=== PATIENT | male | born 1945 | race Caucasian/White ===

== ENCOUNTER 2020-04-07 12:53 | Emergency (ER) | payer BC ==
[~2020-04-07] VITALS: Ht 188 cm; Wt 78.0 kg
[2020-04-07] MEDS ORDERED: NAMENDA 5 MG TAB5 M1 PO (13:16)
[2020-04-07] MEDS ORDERED: SEROQUEL 25 MG25 MG PO (13:16)
[2020-04-07] MEDS ORDERED: ARICEPT10 MG PO (13:17)
[2020-04-07] MEDS ORDERED: PROSCAR 5MG TABL5 M1 PO (13:17)
[2020-04-07] MEDS ORDERED: KAPSPARGO SPRIN50 MG PO (13:17)
[2020-04-07 13:57] LABS: ABSOLUTE EOSINOPHILS 0.1 thou/uL (0.0-0.7); ABSOLUTE LYMPHOCYTES 0.5 thou/uL (0.8-5.3); ABSOLUTE MONOCYTES 0.5 thou/uL (0.0-1.2); ABSOLUTE NEUTROPHILS 2.8 thou/uL (1.6-8.1); BASOPHILS 0.9 %; EOSINOPHILS 1.9 %; MCH 33.1 pg (26.0-34.0); MCHC 34.3 g/dL (28.0-37.0); MCV 96.6 fL (80.0-100.0); MONOCYTES 12.2 %; NUCLEATED RBCS 0 /100WBC; PLATELET COUNT* 53 thou/uL (150-400); RBC 4.24 mil/uL (4.50-6.00); RDW-CV 13.4 % (10.5-14.5); WBC 3.9 thou/uL (4.0-11.0)
[2020-04-07 13:59] LABS: CALCIUM 8.6 mg/dL (8.5-10.1); CREATININE 0.9 mg/dL (0.6-1.3); POTASSIUM 4.3 mmol/L (3.5-5.1)
[2020-04-07 14:04] LABS: ALBUMIN 3.5 g/dL (3.4-5.0); TOTAL BILIRUBIN 1.4 mg/dL (<0.1-1.0); TOTAL PROTEIN 7.2 g/dL (6.4-8.2)
[2020-04-07 15:15] LABS: URINE BILIRUBIN NEGATIVE (Negative); URINE BLOOD NEGATIVE (Negative); URINE CLARITY CLEAR; URINE COLOR YELLOW; URINE GLUCOSE-RANDOM NEGATIVE (Negative); URINE KETONES NEGATIVE (Negative); URINE LEUKOCYTES-REFLEX NEGATIVE (Negative); URINE NITRITE-REFLEX NEGATIVE (Negative); URINE PROTEIN NEGATIVE (Negative)
[2020-04-07 16:14] LABS: APTT 24.8 Seconds (25.0-31.3); INR 1.2; PROTIME 12.6 Seconds (9.20-11.50)
[2020-04-07] MEDS ORDERED: NORCO 5-325 TA1 EAC2 PO (17:13)
[2020-04-07 17:29] VITALS: BP 129/75
--- NOTE | 2020-04-08 17:53 | EKG ---
[place] [address] ELECTROCARDIOGRAM REPORT Name: JULIANA BECKER Room: [facility]#: [id number] Admission: 04/07/20 Attend Phys: Discharge: 04/07/20 Date of : 41 Date of Service: 04/07/20 1609 Report #: [id number] THIS REPORT FOR: //name// 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[employer] : 1945 Requested By: Jessica San Order Number: [id number] MD: Anant Castillo Measurements Intervals [place] Rate: 64 P: 29 MA: 172 QRS: -33 QRSD: 100 T: 0 QT: 443 QTc: 457 Interpretive Statements Sinus rhythm Abnormal R-wave progression, late transition Left anterior fascicular block borderline T abnormalities, inferior leads Baseline wander in lead(s) II,III,aVF No previous ECG available for comparison Electronically Signed On 04-08-2020 17:53:42 CDT by Anant Castillo [email or web address] <ELECTRONICALLY SIGNED> By: Anant Castillo MD, FACC 04/08/20 1753 1609 1609 Anant Castillo MD, FACC /EPI
== END 2020-04-07 17:29 | disposition home or self-care (01) ==
LOC: M.ERS 12:53
PROVIDERS: Nurse Practitioner Family
DX: S22.43XA Multiple fractures of ribs, bilateral, initial encounter for closed fracture (principal); S30.0XXA Contusion of lower back and pelvis, initial encounter; R91.8 Other nonspecific abnormal finding of lung field; I10 Essential (primary) hypertension; W18.39XA Other fall on same level, initial encounter; Y93.89 Activity, other specified; Y92.091 Bathroom in other non-institutional residence as the place of occurrence of the external cause; Y99.8 Other external cause status

== ENCOUNTER 2021-02-28 08:45 | Emergency (ER) | payer BC ==
[~2021-02-28] VITALS: Ht 182.9 cm; Wt 95.3 kg
[~2021-02-28 08:45] MED LIST: ARICEPT10 MG PO; KAPSPARGO SPRIN50 MG PO; NAMENDA 5 MG TAB5 M1 PO; NORCO 5-325 TA1 EAC2 PO; PROSCAR 5MG TABL5 M1 PO; SEROQUEL 25 MG25 MG PO
[2021-02-28] MEDS ORDERED: SEROQUEL 50 MG50 M1 PO (08:57)
[2021-02-28] MEDS ORDERED: FLOMAX0.4 MG PO (08:57)
[2021-02-28] MEDS ORDERED: CARVEDILOL12.5 MG PO (08:57)
[2021-02-28 09:53] LABS: ABSOLUTE EOSINOPHILS 0.1 thou/uL (0.0-0.7); ABSOLUTE LYMPHOCYTES 0.4 thou/uL (0.8-5.3); ABSOLUTE MONOCYTES 0.4 thou/uL (0.0-1.2); ABSOLUTE NEUTROPHILS 2.9 thou/uL (1.6-8.1); BASOPHILS 0.7 %; EOSINOPHILS 1.3 %; HEMATOCRIT 35.4 % (42.0-52.0); HEMOGLOBIN 12.2 gm/dL (14.0-18.0); LYMPHOCYTES 10.6 %; MCH 31.5 pg (26.0-34.0); MCHC 34.3 g/dL (28.0-37.0); MCV 91.8 fL (80.0-100.0); MONOCYTES 10.4 %; MPV 8.9 fl. (7.2-11.1); NUCLEATED RBCS 0 /100WBC; RBC 3.86 mil/uL (4.50-6.00); RDW-CV 14.1 % (10.5-14.5); WBC 3.8 thou/uL (4.0-11.0)
[2021-02-28 09:59] LABS: PLATELET COUNT* 45 thou/uL (150-400)
[2021-02-28 10:01] LABS: CALCIUM 8.8 mg/dL (8.5-10.1); CREATININE 1.1 mg/dL (0.6-1.3); POTASSIUM 4.3 mmol/L (3.5-5.1)
[2021-02-28] MEDS ORDERED: BACTRIM DS TAB1 EAC1 PO (10:47)
[2021-02-28 11:01] VITALS: BP 108/71
== END 2021-02-28 11:02 | disposition home or self-care (01) ==
LOC: M.ERS 08:45
PROVIDERS: Emergency Medicine Emergency Medical Services
DX: L02.416 Cutaneous abscess of left lower limb (principal); L03.116 Cellulitis of left lower limb; I10 Essential (primary) hypertension; F41.9 Anxiety disorder, unspecified; F03.90 Unspecified dementia, unspecified severity, without behavioral disturbance, psychotic disturbance, mood disturbance, and anxiety; Z79.899 Other long term (current) drug therapy

== ENCOUNTER 2021-03-16 15:36 | Emergency (ER) | payer BC ==
[~2021-03-16] VITALS: Ht 188 cm; Wt 88.1 kg
[~2021-03-16 15:36] MED LIST changes: +BACTRIM DS TAB1 EAC1 PO; +CARVEDILOL12.5 MG PO; +FLOMAX0.4 MG PO; +SEROQUEL 50 MG50 M1 PO
[2021-03-16] MEDS ORDERED: VITAMIN B-121000 MC2 PO (15:53)
[2021-03-16] MEDS ORDERED: DOXYCYCLINE 10100 MG PO (15:58)
[2021-03-16 16:03] VITALS: BP 144/63
== END 2021-03-16 16:03 | disposition home or self-care (01) ==
LOC: M.ERS 15:36
DX: L03.116 Cellulitis of left lower limb (principal); I10 Essential (primary) hypertension